=== PATIENT | male | born 1955 | race Two or more races ===

== ENCOUNTER → 2024-05-18 | Outpatient (BNVA) | payer OTHER, MEDICARE, SELFPAY | END | disposition home or self-care (01) | PROVIDERS: PCP Nurse Practitioner Family; Referring Provider Nurse Practitioner Family; Visit Provider Nurse Practitioner Family | DX: T78.1XXA Other adverse food reactions, not elsewhere classified, initial encounter (principal) | CPT/HCPCS: 96372; 99213; J1200; J2919 ==

== ENCOUNTER → 2024-06-22 | Outpatient (CLI) | payer OTHER, MEDICARE, SELFPAY ==
--- NOTE | 2024-06-22 15:30 | XR_ITS ---
Examination: Testicular sonography complete Technique: Grayscale sonographic images testes, assessment arterial inflow venous outflow Doppler spectral analysis, flow analysis Exam date and time: June 22, 2024 1525 hrs. Indications: Palpable right testicular mass beginning 2 years ago Findings: Right testis 4.2 cm epididymis 2.6 cm Arterial flow testicle. No testicular mass Left testis 4.6 cm epididymis 2.3 cm 6 mm left epididymal cyst Arterial flow testicle. No testicular mass Mild bilateral hydroceles Impression: No testicular torsion or testicular mass Small benign left epididymal cyst
== END | disposition home or self-care (01) ==
PROVIDERS: PCP Internal Medicine; Referring Provider Internal Medicine; Visit Provider Internal Medicine
DX: L72.9 Follicular cyst of the skin and subcutaneous tissue, unspecified (principal)
CPT/HCPCS: 76870

== ENCOUNTER → 2024-12-03 | Outpatient (CLI) | payer OTHER, MEDICARE, SELFPAY ==
--- NOTE | 2024-12-03 15:05 | XR_ITS ---
EXAMINATION: Cervical spine, 5 views Technique: Cervical spine AP, AP odontoid, lateral, bilateral obliques, 5 views Exam date and time: December 03, 2024 1531 hours INDICATIONS: Neck pain beginning 3 weeks ago. FINDINGS: Adequate alignment cervical vertebral bodies Moderate degenerative disc disease C6-C7 with moderate bilateral neural foraminal stenosis Intact odontoid No fracture IMPRESSION: Moderate degenerative disc disease C6-C7
--- NOTE | 2024-12-03 15:05 | XR_ITS ---
Examination: Shoulder,left, 3 views Technique: Shoulder AP internal rotation, AP external rotation, Y view shoulder, 3 views Exam date and time :December 13, 2024 1531 hours INDICATIONS: Shoulder pain beginning 2 months ago FINDINGS: Moderate narrowing glenohumeral joint Moderate osteoarthritis acromioclavicular joint. No shoulder fracture or dislocation No calcific tendinitis IMPRESSION: Moderate narrowing glenohumeral joint
== END | disposition home or self-care (01) ==
LOC: CDIM 15:00
PROVIDERS: PCP Internal Medicine; Referring Provider Internal Medicine; Visit Provider Internal Medicine
DX: M50.323 Other cervical disc degeneration at C6-C7 level (principal); M25.812 Other specified joint disorders, left shoulder
CPT/HCPCS: 72050; 73030

== ENCOUNTER → 2024-12-07 | Outpatient (CLI) | payer OTHER, MEDICARE, SELFPAY ==
[2024-12-07 12:48] LABS: Glucose Estimated Average 111 mg/dL (80-131); Hemoglobin A1C 5.5 % Hgb (4.8-6.0)
[2024-12-07 12:57] LABS: Prostate Specific Antigen 0.41 ng/mL (0-4.00)
[2024-12-07 12:59] LABS: Alanine Aminotransferase 14 U/L (10-49); Albumin, Serum 4.4 gm/dL (3.4-4.8); Albumin/Globulin Ratio 1.8 (1.2-2.2); Alkaline Phosphatase 73 U/L (46-116); Anion Gap 9 (7-16); Aspartate Amino Transferase 25 U/L (0-34); BUN/Creatinine Ratio 13 Ratio (12-20); Bilirubin,Total 0.9 mg/dL (0.3-1.2); Blood Urea Nitrogen 10 mg/dL (9-23); Calcium 9.3 mg/dL (8.3-10.6); Calcium (Corrected) 9.3 mg/dL (8.5-10.1); Carbon Dioxide 28.0 mMol/L (20.0-31.0); Cardiac Risk Estimate 4.0 RATIO (4.0-6.7); Chloride 101 mMol/L (98-107); Cholesterol 182 mg/dL (132-200); Creatinine (Component) 0.8 mg/dL (0.6-1.3); Free T4 (Free Thyroxine) 0.88 ng/dL (0.89-1.76); Globulin 2.4 gm/dL (2.3-3.5); Glucose 106 mg/dL (74-106); HDL Cholesterol 45 mg/dL (40-60); LDL Cholesterol,Calculated 101 mg/dL (0-130); Osmolality,Calculated 274 (275-295); Potassium 4.2 mMol/L (3.4-5.1); Sodium 138 mMol/L (136-145); Thyroid Stimulating Hormone 1.94 uIU/mL (0.55-4.78); Total Protein 6.8 gm/dL (5.7-8.2); Triglycerides 181 mg/dL (30-150); eGFR > 60 See Note
[2024-12-07 13:03] LABS: Basophils # (Auto) 0.1 Thou/mm3 (0.0-0.2); Basophils % (Auto) 1 % (0-2.5); Eosinophils # (Auto) 0.5 Thou/mm3 (0.0-0.5); Eosinophils % (Auto) 6 % (0-10); Hematocrit 46.8 % (41.0-53.0); Hemoglobin 16.0 g/dL (13.5-16.0); Immature Granulocytes Auto 0.03 Thou/mm3 (0.00-0.00); Lymphocytes # (Auto) 2.4 Thou/mm3 (1.0-4.8); Lymphocytes % (Auto) 28 % (10-50); Mean Corpuscular HGB Conc 34.2 g/dl (31.0-37.0); Mean Corpuscular Hemoglobin 31.6 pg (25.0-35.0); Mean Corpuscular Volume 92 fL (80-100); Monocytes # (Auto) 0.7 Thou/mm3 (0.0-0.8); Monocytes % (Auto) 8 % (0-12); Neutrophils # (Auto) 4.8 Thou/mm3 (1.8-7.7); Neutrophils % (Auto) 57 % (37-80); Nucleated Red Blood Cell # 0.00 Thou/mm3 (0.00-0.00); Nucleated Red Blood Cell % 0 /100 WBC (0); Platelet Count 309 Thou/mm3 (140-440); RDW Standard Deviation 45.2 fL (35.1-43.9); Red Blood Count 5.07 Miln/mm3 (4.50-5.90); White Blood Count 8.5 Thou/mm3 (3.8-10.6)
[2024-12-07 13:11] LABS: Vitamin D 25 Hydroxy Total 39.9 ng/mL (7.3-40.2)
[2024-12-08 16:12] LABS: Vitamin B12 467 pg/mL (211-911)
== END | disposition home or self-care (01) ==
LOC: COPL 11:31
PROVIDERS: PCP Internal Medicine; Referring Provider Internal Medicine; Visit Provider Internal Medicine
DX: Z00.00 Encounter for general adult medical examination without abnormal findings (principal); E55.9 Vitamin D deficiency, unspecified; N40.1 Benign prostatic hyperplasia with lower urinary tract symptoms
CPT/HCPCS: 36415; 80053; 80061; 82306; 82607; 83036; 84153; 84439; 84443; 85025